=== PATIENT | male | born 1985 | race Two or more races ===

== ENCOUNTER 2022-04-14 18:29 | Emergency (ER) | payer OTHER ==
[~2022-04-14] VITALS: Ht 175.3 cm; Wt 74.8 kg
--- NOTE | 2022-04-14 19:00 | NUR ---
SEEN BY [employer]PERVIS[employer] FOR EVAL
--- NOTE | 2022-04-14 19:07 | NUR ---
EMT AT PT'S BEDSIDE TO CLEAN LAC
--- NOTE | 2022-04-14 19:18 | NUR ---
Patient discharged to home in stable condition. Written and verbal after care instructions given. Patient verbalizes understanding of instruction.
[2022-04-14 19:19] VITALS: BP 125/81
== END 2022-04-14 19:20 | disposition home or self-care (01) ==
LOC: ER 18:38
DX: S01.111A Laceration without foreign body of right eyelid and periocular area, initial encounter (principal); W22.8XXA Striking against or struck by other objects, initial encounter; Y93.89 Activity, other specified; Y92.89 Other specified places as the place of occurrence of the external cause; Y99.8 Other external cause status